=== PATIENT | male | born 1965 | race Caucasian/White ===

== ENCOUNTER 2019-07-14 09:41 | Outpatient (CLI) | payer SELFPAY ==
--- NOTE | 2019-07-14 09:57 | XR_ITS ---
WS: [id number] XR chest 2V* [id number] REASON FOR EXAM: renal cancer FINDINGS: The heart and mediastinum were normal. The peripheral lung show normal aeration. No evidence of metastatic changes. Pneumonia. Pneumothorax. Or pulmonary edema. Arteriosclerotic changes in the arch of the aorta. There is mild pleural thickening in the apices bilaterally but no masses are seen. XR/XR chest 2V* [id number] IMPRESSION: Negative chest for active pathology.
[2019-07-14 10:36] LABS: Basophils % 0.2 %; Hematocrit 42.9 % (42.0-52.0); Hemoglobin 14.4 g/dL (11.7-16.6); Lymphocytes # 1.5 10^3/uL (0.8-4.8); Lymphocytes % 21.9 %; Mean Corpuscular HGB Conc 33.6 g/dL (30.0-36.0); Mean Corpuscular Hemoglobin 28.7 pg (28.0-34.0); Mean Corpuscular Volume 85.5 fL (80-94); Mean Platelet Volume 10.6 fL (7.4-10.4); Monocytes # 0.8 10^3/uL (0.2-0.9); Monocytes % 12.2 %; Neutrophils # 4.3 10^3/uL (1.8-7.7); Neutrophils % 64.9 %; Nucleated Red Blood Cells % 0 %; Platelet Count 189 10^3/cmm (130-400); Red Blood Count 5.02 10^6/uL (4.1-5.3); Red Cell Distribution Width 12.7 % (12.1-15.1); White Blood Count 6.6 10^3/uL (4.0-10.0)
[2019-07-14 11:03] LABS: Prostate Specific Antigen Scr 0.45 ng/mL (0-4)
[2019-07-14 11:14] LABS: Alanine Aminotransferase 40 U/L (0-41); Albumin Level 4.5 g/dL (3.5-5.2); Alkaline Phosphatase 95 IU/L (40-130); Anion Gap 15.6 (5-19); Aspartate Amino Transferase 35 U/L (0-40); Blood Urea Nitrogen 21 mg/dL (6-20); Calcium 9.8 mg/dL (8.5-10.5); Carbon Dioxide 25 mmol/L (22-29); Chloride 105 mmol/L (98-107); Globulin 3.5 g/dL (1.3-4.6); Glomerular Filtration Rate 78.2 mL/min (90-130); Glucose 108 mg/dL (65-115); Potassium 4.6 mmol/L (3.5-5.1); Sodium 141 mmol/L (136-145); Total Bilirubin 0.4 mg/dL (0.15-1.2)
== END 2019-07-14 09:42 | disposition home or self-care (01) ==
LOC: RAD 09:50
PROVIDERS: PCP Urology; Visit Provider Urology
DX: C64.9 Malignant neoplasm of unspecified kidney, except renal pelvis (principal); Z12.5 Encounter for screening for malignant neoplasm of prostate; N40.1 Benign prostatic hyperplasia with lower urinary tract symptoms; F17.210 Nicotine dependence, cigarettes, uncomplicated
CPT/HCPCS: 71046; 80053; 81001; 85025; G0103